=== PATIENT | male | born 1955 | race Caucasian/White ===

== ENCOUNTER 2017-02-06 12:24 | Inpatient (IN) | payer OTHER ==
[~2017-02-06 12:24] MED LIST: LACTATED RINGER'S 1000 ML INJ 1,000 ML IV ONE; NEOSTIGMINE 3 MG/3 ML SYR IV ONE; ONDANSETRON HCL 4 MG/2 ML VIAL IV PUSH ONE; PHENYLEPH/NS 1000 MCG/10 ML SYR IV ONE; PROPOFOL 200 MG/20 ML AMP IV ONE; ePHEDrine/NS 25 MG/5 ML SYR IV ONE; fentaNYL CITRATE 250 MCG/5 ML AMP IV ONE
[2017-02-06 12:26] VITALS: O2SAT 97
[2017-02-06] MEDS ORDERED: ceFAZolin 2 GM PREMIX 50 ML ONE (12:27)
[2017-02-06] MEDS ORDERED: DIPHTH/TETANUS/ACEL PERTUSSIS (BOOSTER) 0.5 ML VIAL/PFS IM ONE (12:27)
[2017-02-06] MEDS ORDERED: PROPOFOL 500 MG/50 ML INJ 50 ML ONE (12:29)
[2017-02-06] MEDS: SODIUM CHLOR 0.9% 1000 ML INJ 1,000 ML IV SCH ×2 (12:44→22:44)
[2017-02-06] MEDS ORDERED: MAGNESIUM HYDROXIDE SUSP 30 ML CUP PO PRN (12:45)
[2017-02-06] MEDS: BACITRACIN TOP OINT 15 GM TUBE TOP SCH ×2 (12:45→21:00)
[2017-02-06] MEDS ORDERED: ENALAPRILAT 1.25 MG/ML VIAL IV PRN (12:45)
[2017-02-06] MEDS ORDERED: MORPHINE SULFATE 30 MG/30 ML PCA IV SCH (12:45)
[2017-02-06] MEDS ORDERED: NALOXONE HCL 0.4 MG/ML AMP IV PRN (12:45)
[2017-02-06] MEDS ORDERED: SODIUM CHLORIDE 0.9% FLUSH 10 ML FLUSH IV FLUSH PRN (12:45)
[2017-02-06] MEDS ORDERED: ACETAMINOPHEN 325 MG TAB PO PRN (12:45)
[2017-02-06] MEDS ORDERED: MISCELLANEOUS NURSING INFORMATION XX SCH (12:45)
[2017-02-06] MEDS: PANTOPRAZOLE SODIUM 40 MG VIAL IVP SCH (12:45)
[2017-02-06] MEDS ORDERED: ACETAMINOPHEN/HYDROcodone 325 MG/5 MG TAB PO PRN ×2 (12:45)
[2017-02-06] MEDS ORDERED: CHLORHEXIDINE GLUCONATE 2 % 1 PACK (2 CLOTHS) TOP PRN (12:45)
[2017-02-06 12:54] LABS: AUTOMATED NEUTROPHIL # 4.2 TH/MM3 (1.8-7.7); BASOPHIL # 0.1 TH/MM3 (0-0.2); BASOPHIL % 0.8 % (0.0-2.0); EOSINOPHIL # 0.3 TH/MM3 (0-0.4); EOSINOPHIL % 3.7 % (0.0-4.0); HEMO FLAGS DIFF FINAL; LYMPHOCYTE # 1.9 TH/MM3 (1.0-4.8); MEAN CELL VOLUME 98.1 FL (80.0-100.0); MEAN CORPUSCULAR HEMOGLOBIN 34.2 PG (27.0-34.0); MEAN CORPUSCULAR HGB CONC 34.8 % (32.0-36.0); MONO % 7.9 % (0.0-8.0); NEUT % 60.6 % (16.0-70.0); PLATELET COUNT 193 TH/MM3 (150-450); RED BLOOD COUNT 4.78 MIL/MM3 (4.50-5.90); RED CELL DISTRIBUTION WIDTH 13.7 % (11.6-17.2)
[2017-02-06] MEDS ORDERED: IOHEXOL 350 MG/ML 10 ML VIAL (for RAD DIAG) IV ONE (12:58)
[2017-02-06 12:59] LABS: I-STAT POTASSIUM 3.8 MMOL/L (3.5-4.9)
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
[2017-02-06 13:04] LABS: APTT (PATIENT) 25.3 SEC (24.3-30.1); PROTHROMBIN TIME - PATIENT 11.1 SEC (9.8-11.6)
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
[2017-02-06] MEDS ORDERED: PCA - TOTAL MG MORPHINE DELIVERED PER SHIFT SCH (14:00)
[2017-02-06 14:05] VITALS: BP 147/98; PULSE 75; RESP 18; TEMP 98.3; O2SAT 98
[2017-02-06 14:30] VITALS: BP 142/86; PULSE 82; RESP 18; TEMP 96.9; O2SAT 96
[2017-02-06] MEDS ORDERED: MORPHINE SULFATE 4 MG/ML INJ IV ONE (15:30)
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
[2017-02-06] MEDS ORDERED: AMBI10TA PO (17:29)
[2017-02-06] MEDS ORDERED: IPRAAER INH (17:29)
[2017-02-06] MEDS ORDERED: CYCL1TAB29 PO (17:29)
[2017-02-06] MEDS ORDERED: DULE200A INH (17:29)
[2017-02-06] MEDS ORDERED: TYLETAB34 PO (17:29)
[2017-02-06] MEDS ORDERED: BUPIVACAINE/EPINEPHRINE 0.5% PF 10 ML VIAL ONE (17:55)
[2017-02-06] MEDS ORDERED: GENTAMICIN SULFATE 80 MG/2 ML VIAL ONE (17:55)
[2017-02-06] MEDS ORDERED: fentaNYL CITRATE 250 MCG/5 ML AMP ONE (18:46)
[2017-02-06] MEDS: DOCUSATE SODIUM 100 MG CAP PO SCH (21:00)
--- NOTE | 2017-02-06 21:23 | PD.OP ---
Operative Report Preoperative Diagnosis: (1) Distal radius fracture, right (2) Ankle fracture, right (3) Acute carpal tunnel syndrome of right wrist Postoperative Diagnosis: (1) Distal radius fracture, right (2) Ankle fracture, right (3) Acute carpal tunnel syndrome of right wrist Procedure: 1) ORIF Right intraarticular distal radius fracture 2) ORIF Right ankle bimalleolar fracture 3) Right open carpal tunnel release Anesthesia: General Surgeon: Darryl Hutchinson MD Echocardiograph Technician(s): staff Operation and Findings: see dictation Darryl Hutchinson MD Feb 06, 2017 21:23
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
[2017-02-06] MEDS ORDERED: Post-op Orders (for Pharmacy) MISC XX ONE (21:45)
[2017-02-06] MEDS ORDERED: LACTULOSE SYRUP 20 GM/30 ML CUP PO PRN (21:45)
[2017-02-06] MEDS ORDERED: diphenhydrAMINE HCL 25 MG CAP PO PRN (21:45)
[2017-02-06] MEDS ORDERED: *RESP: ALBUTEROL 2.5 MG/3 ML NEB (PRN) PERIprocedural Use ONLY NEB ONE (21:47)
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
[2017-02-06] MEDS ORDERED: DO NOT ADM ANY ANTICOAGULANT DRUGS PRN (22:00)
[2017-02-06] MEDS: PCA - TOTAL MG DILAUDID DELIVERED PER SHIFT OTHER SCH (22:00)
[2017-02-06] MEDS: HYDROmorphone HCL PCA 6 MG/30 ML IV SCH (22:12)
--- NOTE | 2017-02-06 22:21 | RADRPT ---
EXAM DATE/TIME: 02/06/2017 19:25 [facility] COMPARISON: ANKLE RIGHT COMPLETE ([id number]), February 06, 2017, 13:49. INDICATIONS : ORIF of the right ankle. MEDICAL HISTORY : Non-responsive SURGICAL HISTORY : Non-responsive ENCOUNTER: Subsequent ACUITY: 1 day PAIN SCORE: Non-responsive. LOCATION: Right ankle FINDINGS: A total of 7 images recorded digitally the operating room using C-arm during placement of 2 screws in the medial malleolus and a long screw in the shaft of the fibula. CONCLUSION: Intraoperative images. Almas Bales MD on February 06, 2017 at 22:18 Board Certified Radiologist. This report was verified electronically.
[2017-02-06 22:35] VITALS: BP 146/89; PULSE 78; RESP 16; TEMP 97.6; O2SAT 94
--- NOTE | 2017-02-06 22:35 | RADRPT ---
EXAM DATE/TIME: 02/06/2017 20:43 [facility] COMPARISON: No previous studies available for comparison. INDICATIONS : ORIF of the right wrist. MEDICAL HISTORY : Non-responsive SURGICAL HISTORY : Non-responsive ENCOUNTER: Subsequent ACUITY: 1 day PAIN SCORE: Non-responsive. LOCATION: Right upper extremity FINDINGS: 6 images of the wrists are recorded digitally in the operating room during placement of a volar plate in the radius. CONCLUSION: Intraoperative images Almas Bales MD on February 06, 2017 at 22:32 Board Certified Radiologist. This report was verified electronically.
--- NOTE | 2017-02-06 23:10 | MP ---
cc: JOSE HUTCHINSON M.D. DATE OF SURGERY 02/06/17 PREOPERATIVE DIAGNOSIS 1. Highly comminuted right distal radius intra-articular fracture. 2. Right ankle bimalleolar fracture. 3. Right acute carpal tunnel syndrome. POSTOPERATIVE DIAGNOSIS 1. Highly comminuted right distal radius intra-articular fracture. 2. Right ankle bimalleolar fracture. 3. Right acute carpal tunnel syndrome. PROCEDURE 1. Right ankle open reduction, internal fixation bimalleolar fracture using Synthes 4.0 cannulated screws medially and a long 3.5 mm intramedullary screw laterally. 2. Right distal radius intra-articular fracture, open reduction, internal fixation with Synthes specialty locking plate. 3. Right open carpal tunnel release. ANESTHESIA The anesthetic is general. SURGEON Jose Hutchinson MD OFFICE TECHNOLOGY INSTRUCTOR SURGEON Staff. ESTIMATED BLOOD LOSS Of the right ankle is 20 cc. The estimated blood loss of the right wrist is 40 cc. TOURNIQUET TIME The tourniquet time for the right upper extremity approximately 1 hour. Left lower extremity none. INDICATION Sourav Lyn is a 61-year-old male who has a highly comminuted right distal radius intra-articular fracture with numbness throughout his hands as well as bimalleolar ankle fracture. He is indicated for surgical repair in both locations. The risks, benefits thoroughly discussed and a detailed informed consent was obtained. PROCEDURE IN DETAIL The patient brought to the operating room. He was placed under general anesthetic. The right lower extremity and right upper extremity prepped and draped in the usual sterile fashion. IV antibiotics were given. Time-out was completed. We did the right ankle first. We did not use a tourniquet. We made a medial based incision and went down to the layers, obtained excellent hemostasis. Identified the fracture site, irrigate it out. There was some comminuted bone in this location, anatomic alignment of the bone, clamped with two clamps, confirmed excellent alignment with fluoroscopic views and then use K-wire fixation and then cannulated screws of the K-wire 34 mm long threaded Synthes 4.0 without washers, excellent fixation. Then we went to the lateral side. There was hematoma formation and there was an eschar overlying the distal fibula. We decided to go with the intramedullary technique. A small incision 1 cm inferiorly and released the hematoma and then went through the tip of the ankle with the fibula and acceptable alignment and then a long drill all the way up on the inside of the medullary canal and then placed our 150 mm 3.5 screw with excellent realignment of bone, good, x-rays AP and lateral view showed the final result. We then proceed to irrigate out and close with absorbable sutures subcu and then nylon on the skin. Attention was ___ on the right upper extremity. We proceeded with volar approach of Ronan. We took down the quadratus pronator and proceeded to realign the intra-articular fracture fragments in both AP and lateral plane. Subperiosteal dissection of the bone, satisfied with the alignment and then we chose our fracture plate and then the balance. The position of the plate and then used K-wires through the plate. Multiple traction techniques and K-wires to fixate and then proceeded with a locking screws in all locations, original one cortical screw. Tourniquet was about 1 hour. The wrist was very tight and decision was made to proceed with a carpal tunnel release through an incision at the base of the palm and then proceeded to irrigate out with copious amounts of irrigation and then proceeded to close with absorbable sutures repairing the quadratus femoris and then the subcu and then nylon on the skin. Xeroform applied. Sterile dressing applied. Sugar-tong splint applied in both locations. The patient was awoken, returned to recovery room in stable condition. MD NITHIN Ortega/AMAURI /9:30 PM /10:53 PM
[2017-02-07] MEDS: ceFAZolin 2 GM PREMIX 50 ML IV SCH ×3 (03:30→16:24)
[2017-02-07 04:00] VITALS: BP 137/86; PULSE 84; RESP 16; TEMP 96.5; O2SAT 97
[2017-02-07] MEDS ORDERED: CHLORHEXIDINE GLUCONATE 2 % 1 PACK (2 CLOTHS) TOP SCH (04:00)
[2017-02-07] MEDS: PCA - TOTAL MG DILAUDID DELIVERED PER SHIFT OTHER SCH ×3 (05:20→21:50)
[2017-02-07] MEDS ORDERED: ZOLPIDEM TARTRATE 10 MG TAB PO PRN (06:45)
--- NOTE | 2017-02-07 06:50 | PD.ORT.PN ---
Subjective Subjective Remarks Patient comfortable Objective Vitals Vital Signs Date Time Temp Pulse Resp B/P Pulse Ox O2 Delivery O2 Flow Rate FiO2 02/07/17 05:20 16 02/07/17 04:00 96.5 84 16 137/86 97 02/06/17 22:35 97.6 78 16 146/89 94 02/06/17 22:15 79 17 138/86 99 Nasal Cannula 4 02/06/17 22:12 20 02/06/17 22:00 80 19 148/89 96 Nasal Cannula 4 02/06/17 21:45 80 12 149/95 96 Nasal Cannula 4 02/06/17 21:41 98.3 82 11 147/85 99 Nasal Cannula 4 02/06/17 15:35 16 02/06/17 14:30 96.9 82 18 142/86 96 02/06/17 14:05 98.3 75 18 147/98 98 Room Air 02/06/17 12:26 97 Nasal Cannula 4.00 02/06/17 12:26 97 4.00 I/O 02/06/17 02/06/17 02/06/17 02/07/17 02/07/17 02/07/17 07:00 15:00 23:00 07:00 15:00 23:00 Intake Total 1600 ml 1064 ml Output Total 400 ml Balance 1600 ml 664 ml Intake Oral 360 ml IV Total 704 ml Other 1600 ml Output Urine Total 400 ml Result Diagram: 02/06/17 1229 Other Results Laboratory Tests Test 02/06/17 12:29 Prothrombin Time 11.1 SEC (9.8-11.6) Prothromb Time International 1.0 RATIO Ratio Imaging Last [address] 02/06/17 1231 Signed Impressions: Service Date/Time: Monday, February 06, 2017 12:47 - CONCLUSION: 1. No acute intracranial abnormality is identified. 2. Air-fluid levels are present within the maxillary antra bilaterally, likely with blood products. Ortiz Bliss MD Chest CT 02/06/17 1231 Signed Impressions: Service Date/Time: Monday, February 06, 2017 12:56 - CONCLUSION: 1. Negative for acute traumatic injury. Dependent atelectasis in the lungs. Paul Mancia MD Cervical Spine CT 02/06/17 1231 Signed Impressions: Service Date/Time: Monday, February 06, 2017 12:47 - CONCLUSION: 1. No cervical spine fracture or acute cervical spine injury is identified. 2. Degenerative disc disease at C5-C6 and C6-C7 with severe right neural foraminal stenosis at C3-C4. Ortiz Bliss MD Abdomen/Pelvis CT 02/06/17 1231 Signed Impressions: Service Date/Time: Monday, February 06, 2017 12:56 - CONCLUSION: 1. Negative for acute traumatic injury. Gallstones in gallbladder. Mild fatty liver. Small hiatal hernia. Paul Mancia MD Objective Remarks Right upper extremity splint in place fingers neuro intact good capillary refill Right lower extremity splint in place good capillary refill NVI Assessment & Plan Problem List: (1) Ankle fracture, right (2) Distal radius fracture, right (3) Acute carpal tunnel syndrome of right wrist Assessment and Plan POD #1 ORIF Right Wrist and Ankle and carpal tunnel release Pain control Physical therapy Platform walker NWB right lower extremity Follow up in office in 2 weeks Darryl Hutchinson MD Feb 07, 2017 06:50
[2017-02-07] MEDS: SODIUM CHLOR 0.9% 1000 ML INJ 1,000 ML IV SCH ×2 (07:40→11:37)
[2017-02-07] MEDS: ONDANSETRON HCL 4 MG/2 ML VIAL IV PRN ×2 (07:40→16:24)
[2017-02-07] MEDS: PANTOPRAZOLE SODIUM 40 MG VIAL IVP SCH (07:43)
[2017-02-07] MEDS: DOCUSATE SODIUM 100 MG CAP PO SCH (07:43)
[2017-02-07] MEDS: BACITRACIN TOP OINT 15 GM TUBE TOP SCH ×2 (07:46→19:58)
[2017-02-07 08:00] VITALS: BP 134/73; PULSE 86; RESP 16; TEMP 96.3; O2SAT 96
[2017-02-07 08:04] LABS: AUTOMATED NEUTROPHIL # 8.1 TH/MM3 (1.8-7.7); BASOPHIL % 0.1 % (0.0-2.0); HEMATOCRIT 43.8 % (39.0-51.0); HEMO FLAGS DIFF FINAL; LYMPHOCYTE # 0.8 TH/MM3 (1.0-4.8); MEAN CELL VOLUME 98.2 FL (80.0-100.0); MEAN CORPUSCULAR HEMOGLOBIN 34.5 PG (27.0-34.0); MEAN CORPUSCULAR HGB CONC 35.1 % (32.0-36.0); MONO % 7.4 % (0.0-8.0); NEUT % 84.5 % (16.0-70.0); PLATELET COUNT 184 TH/MM3 (150-450); RED BLOOD COUNT 4.46 MIL/MM3 (4.50-5.90); WHITE BLOOD COUNT 9.6 TH/MM3 (4.0-11.0)
[2017-02-07] MEDS ORDERED: platform walker (08:14)
[2017-02-07] MEDS ORDERED: BISACODYL 10 MG SUPP RECTAL PRN (08:15)
[2017-02-07 08:18] LABS: BICARBONATE 26.4 MEQ/L (21.0-32.0); POTASSIUM 4.5 MEQ/L (3.5-5.1)
[2017-02-07 08:45] VITALS: O2SAT 94
[2017-02-07] MEDS: DOCUSATE SODIUM 50 MG/SENNA 8.6 MG TAB PO SCH ×2 (09:00→19:57)
[2017-02-07] MEDS ORDERED: MOMETASONE INH SCH (09:00)
[2017-02-07] MEDS ORDERED: COMBIVENT RESPIMAT INH SCH (09:00)
[2017-02-07] MEDS ORDERED: FORMOTEROL INH SCH (09:00)
[2017-02-07] MEDS: LACTULOSE SYRUP 20 GM/30 ML CUP PO SCH (09:00)
[2017-02-07] MEDS ORDERED: [UNRECOGNIZED DRUG - OTHER] INH SCH (09:00)
[2017-02-07] MEDS: HYDROmorphone HCL PCA 6 MG/30 ML IV SCH (09:23)
[2017-02-07 11:38] VITALS: BP 117/76; PULSE 76; RESP 16; TEMP 95.4; O2SAT 93
--- NOTE | 2017-02-07 12:29 | HHI.PR ---
Subjective Subjective Notes OOB to chair Pain controlled on FLOOR LAYER TILE Objective Vitals/I&O Vital Signs Date Time Temp Pulse Resp B/P Pulse Ox O2 Delivery O2 Flow Rate FiO2 02/07/17 11:38 95.4 76 16 117/76 93 02/07/17 08:45 21 02/06/17 22:15 Nasal Cannula 4 Labs Laboratory Tests Test 02/06/17 02/07/17 12:29 07:00 White Blood Count 7.0 9.6 Red Blood Count 4.78 4.46 Hemoglobin 16.3 15.4 Bedside Hemoglobin 15.6 Hematocrit 47.0 43.8 Bedside Hematocrit 46.0 Mean Corpuscular Volume 98.1 98.2 Mean Corpuscular Hemoglobin 34.2 34.5 Mean Corpuscular Hemoglobin 34.8 35.1 Concent Red Cell Distribution Width 13.7 14.0 Platelet Count 193 184 Mean Platelet Volume 8.5 9.1 Neutrophils (%) (Auto) 60.6 84.5 Lymphocytes (%) (Auto) 27.0 8.0 Monocytes (%) (Auto) 7.9 7.4 Eosinophils (%) (Auto) 3.7 0.0 Basophils (%) (Auto) 0.8 0.1 Neutrophils # (Auto) 4.2 8.1 Lymphocytes # (Auto) 1.9 0.8 Monocytes # (Auto) 0.5 0.7 Eosinophils # (Auto) 0.3 0.0 Basophils # (Auto) 0.1 0.0 CBC Comment DIFF FINAL DIFF FINAL Differential Comment Prothrombin Time 11.1 Prothromb Time International 1.0 Ratio Activated Partial 25.3 Thromboplast Time Bedside Sodium 141 Bedside Potassium 3.8 Bedside Chloride 107 Bedside Blood Urea Nitrogen 16 Bedside Creatinine 1.2 Bedside Glucose 148 Blood Type O POSITIVE Antibody Screen NEGATIVE Sodium Level 138 Potassium Level 4.5 Chloride Level 103 Carbon Dioxide Level 26.4 Anion Gap 9 Blood Urea Nitrogen 15 Creatinine 1.00 Estimat Glomerular Filtration 76 Rate Random Glucose 126 Calcium Level 9.4 Radiology Last Impressions Head CT 02/06/17 1231 Signed Impressions: Service Date/Time: Monday, February 06, 2017 12:47 - CONCLUSION: 1. No acute intracranial abnormality is identified. 2. Air-fluid levels are present within the maxillary antra bilaterally, likely with blood products. Ortiz Bliss MD Chest CT 02/06/17 1231 Signed Impressions: Service Date/Time: Monday, February 06, 2017 12:56 - CONCLUSION: 1. Negative for acute traumatic injury. Dependent atelectasis in the lungs. Paul Mancia MD Cervical Spine CT 02/06/17 1231 Signed Impressions: Service Date/Time: Monday, February 06, 2017 12:47 - CONCLUSION: 1. No cervical spine fracture or acute cervical spine injury is identified. 2. Degenerative disc disease at C5-C6 and C6-C7 with severe right neural foraminal stenosis at C3-C4. Ortiz Bliss MD Abdomen/Pelvis CT 02/06/17 1231 Signed Impressions: Service Date/Time: Monday, February 06, 2017 12:56 - CONCLUSION: 1. Negative for acute traumatic injury. Gallstones in gallbladder. Mild fatty liver. Small hiatal hernia. Paul Mancia MD Wrist X-Ray 02/06/17 0000 Signed Impressions: Service Date/Time: Monday, February 06, 2017 20:43 - CONCLUSION: Intraoperative images Almas Bales MD Upper Extremity CT 02/06/17 0000 Signed Impressions: Service Date/Time: Monday, February 06, 2017 12:56 - CONCLUSION: 1. Comminuted mildly displaced intra-articular fracture of the distal radius. Paul Mancia MD Tibia/Fibula X-Ray 02/06/17 0000 Signed Impressions: Service Date/Time: Monday, February 06, 2017 12:17 - CONCLUSION: Possible fracture of the medial malleolus. When patient condition permits, suggest ankle x-ray series. Ortiz Bliss MD Radius/Ulna X-Ray 02/06/17 0000 Signed Impressions: Service Date/Time: Monday, February 06, 2017 12:17 - CONCLUSION: Improved anatomic alignment following closed reduction and casting of the distal radial fracture. However, there is some continued posterior displacement of the fracture fragments. Ortiz Bliss MD Pelvis X-Ray 02/06/17 0000 Signed Impressions: Service Date/Time: Monday, February 06, 2017 12:17 - CONCLUSION: No acute finding is identified. Ortiz Bliss MD Chest X-Ray 02/06/17 0000 Signed Impressions: Service Date/Time: Monday, February 06, 2017 12:17 - CONCLUSION: No acute finding is identified. Ortiz Bliss MD Ankle X-Ray 02/06/17 0000 Signed Impressions: Service Date/Time: Monday, February 06, 2017 19:25 - CONCLUSION: Intraoperative images. Almas Bales MD Narrative Exam GENERAL: 61-year-old well-nourished, well developed male OOB in chair. SKIN: Warm and dry. HEAD: Atraumatic. Normocephalic. ENT: No nasal bleeding or discharge. Mucous membranes pink and moist. NECK: Trachea midline. No JVD. CARDIOVASCULAR: Regular rate and rhythm. RESPIRATORY: No accessory muscle use. Lungs clear to auscultation. Breath sounds equal bilaterally. GASTROINTESTINAL: Abdomen soft, non-tender, nondistended. + BS. MUSCULOSKELETAL: Extremities without cyanosis, or edema. RUE soft splint in place with sling. RLE soft splint in place. MAEW. Good cap refills. NEUROLOGICAL: Awake and alert. Normal speech. A/P Assessment and Plan INJURIES: RIGHT radius fx RIGHT ankle bimalleolar fx Acute carpal tunnel syndrome 02/06: RIGHT wrist fx reduced in ED 02/06: ORIF RIGHT wrist fx, carpal tunnel release, ORIF RIGHT ankle fx PMHx: Sleep apnea, COPD Diet: Regular Pulm: IS Pain: Dillaudid FLOOR LAYER TILE, Flexeril, [place] Activity: OOB. PT and OT (NWB RLE, NWB RUE) GI: IV Protonix Bowel: Pericolace, Lactulose. LBM 0 DVT: SCDs, Lovenox 30 BID RIGHT radius fx, RIGHT ankle bimalleolar fx, Acute carpal tunnel syndrome Orthopedics consulted 02/06: RIGHT wrist fx reduced in ED 02/06: ORIF RIGHT wrist fx, carpal tunnel release, ORIF RIGHT ankle fx NWB RLE, NWB RUE OOB-PT and OT Pain control Ice PRN Plan of care discussed with patient at bedside. Case management consult to assist discharge planning. Platform walker ordered. Buddy Botello Feb 07, 2017 12:29
[2017-02-07 16:27] VITALS: BP 150/79; PULSE 84; RESP 17; TEMP 96.7; O2SAT 94
[2017-02-07] MEDS: ENOXAPARIN SODIUM 30 MG/0.3 ML SYRINGE SQ SCH (19:58)
[2017-02-07] MEDS: CYCLOBENZAPRINE HCL 10 MG TAB PO PRN (20:02)
[2017-02-07 20:45] VITALS: BP 160/77; PULSE 84; RESP 17; TEMP 96.6; O2SAT 94
[2017-02-08] VITALS: BP 135/83; PULSE 100; RESP 18; TEMP 96.6; O2SAT 93
[2017-02-08 04:25] VITALS: BP 138/84; PULSE 97; RESP 17; TEMP 98.6; O2SAT 93
[2017-02-08] MEDS: SODIUM CHLOR 0.9% 1000 ML INJ 1,000 ML IV SCH (05:21)
[2017-02-08] MEDS: PCA - TOTAL MG DILAUDID DELIVERED PER SHIFT OTHER SCH (05:54)
[2017-02-08] MEDS ORDERED: HYDR-3516 PO (07:07)
[2017-02-08] MEDS ORDERED: WHEEMIS3 (07:07)
--- NOTE | 2017-02-08 07:10 | PD.ORT.PN ---
Subjective Subjective Remarks Patient comfortable Objective Vitals Vital Signs Date Time Temp Pulse Resp B/P Pulse Ox O2 Delivery O2 Flow Rate FiO2 02/08/17 00:00 96.6 100 18 135/83 93 02/07/17 20:45 96.6 84 17 160/77 94 02/07/17 17:59 21 02/07/17 16:27 96.7 84 17 150/79 94 02/07/17 11:38 95.4 76 16 117/76 93 02/07/17 09:23 16 02/07/17 08:45 94 21 02/07/17 08:00 96.3 86 16 134/73 96 I/O 02/07/17 02/07/17 02/07/17 02/08/17 02/08/17 02/08/17 06:59 14:59 22:59 06:59 14:59 22:59 Intake Total 1064 ml 893 ml 279 ml Output Total 400 ml 1000 ml Balance 664 ml -107 ml 279 ml Intake Oral 360 ml 580 ml IV Total 704 ml 313 ml 279 ml Output Urine Total 400 ml 1000 ml # Bowel Movements 0 Result Diagram: 02/07/17 0700 02/07/17 0700 Imaging Last [address] 02/06/17 1231 Signed Impressions: Service Date/Time: Monday, February 06, 2017 12:47 - CONCLUSION: 1. No acute intracranial abnormality is identified. 2. Air-fluid levels are present within the maxillary antra bilaterally, likely with blood products. Ortiz Bliss MD Chest CT 02/06/17 1231 Signed Impressions: Service Date/Time: Monday, February 06, 2017 12:56 - CONCLUSION: 1. Negative for acute traumatic injury. Dependent atelectasis in the lungs. Paul Mancia MD Cervical Spine CT 02/06/17 1231 Signed Impressions: Service Date/Time: Monday, February 06, 2017 12:47 - CONCLUSION: 1. No cervical spine fracture or acute cervical spine injury is identified. 2. Degenerative disc disease at C5-C6 and C6-C7 with severe right neural foraminal stenosis at C3-C4. Ortiz Bliss MD Abdomen/Pelvis CT 02/06/17 1231 Signed Impressions: Service Date/Time: Monday, February 06, 2017 12:56 - CONCLUSION: 1. Negative for acute traumatic injury. Gallstones in gallbladder. Mild fatty liver. Small hiatal hernia. Paul Mancia MD Objective Remarks Right upper extremity splint in place fingers neuro intact good capillary refill Right lower extremity splint in place good capillary refill NVI Assessment & Plan Problem List: (1) Ankle fracture, right (2) Distal radius fracture, right (3) Acute carpal tunnel syndrome of right wrist Assessment and Plan POD #2 ORIF Right Wrist and Ankle and carpal tunnel release Pain control Physical therapy Platform walker for home - medically necessary Wheelchair with elevated leg rest - medically necessary NWB right lower extremity Follow up in office in 2 weeks Darryl Hutchinson MD Feb 08, 2017 07:10
[2017-02-08 07:47] VITALS: BP 144/83; PULSE 99; RESP 19; TEMP 98; O2SAT 94
[2017-02-08] MEDS: BACITRACIN TOP OINT 15 GM TUBE TOP SCH (09:00)
[2017-02-08] MEDS: LACTULOSE SYRUP 20 GM/30 ML CUP PO SCH (09:05)
[2017-02-08] MEDS: ENOXAPARIN SODIUM 30 MG/0.3 ML SYRINGE SQ SCH (09:05)
[2017-02-08] MEDS: GABAPENTIN 300 MG CAP PO SCH ×3 (09:06→16:23)
[2017-02-08] MEDS: PANTOPRAZOLE SODIUM 40 MG VIAL IVP SCH (09:06)
[2017-02-08] MEDS: DOCUSATE SODIUM 50 MG/SENNA 8.6 MG TAB PO SCH (09:06)
[2017-02-08] MEDS: HYDROmorphone HCL PCA 6 MG/30 ML IV SCH (09:10)
[2017-02-08] MEDS ORDERED: PERC5TAB12 PO (11:16)
[2017-02-08 11:30] VITALS: BP 154/84; PULSE 91; RESP 19; TEMP 97.2; O2SAT 93
[2017-02-08] MEDS ORDERED: oxyCODONE/ACETAMINOPHEN 5 MG/325 MG TAB PO PRN (11:30)
[2017-02-08] MEDS: CYCLOBENZAPRINE HCL 10 MG TAB PO PRN (12:19)
[2017-02-08 12:31] VITALS: O2SAT 93
[2017-02-08] MEDS ORDERED: ENOX30P SQ (13:05)
[2017-02-08] MEDS ORDERED: SENN1TAB PO (13:05)
[2017-02-08] MEDS ORDERED: NEUR300C PO (13:05)
[2017-02-08] MEDS ORDERED: Lactulose Liq PO (13:05)
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
[2017-02-08 15:31] VITALS: BP 138/87; PULSE 97; RESP 19; TEMP 96.9; O2SAT 95
== END 2017-02-08 18:49 | DRG 493 ==
LOC: NEPI 12:24 → NEDA 13:02 → EDBD 13:02 → N06A 14:25
PROVIDERS: ADMIT Surgery; ATTEND Surgery
PROC: 0QSG04Z Reposition Right Tibia with Internal Fixation Device, Open Approach (ICD-10-PCS; 2017-02-06)
PROC: 01N50ZZ Release Median Nerve, Open Approach (ICD-10-PCS; 2017-02-06)
PROC: 0PSHXZZ Reposition Right Radius, External Approach (ICD-10-PCS; 2017-02-06)
PROC: 0QSJ04Z Reposition Right Fibula with Internal Fixation Device, Open Approach (ICD-10-PCS; principal; 2017-02-06 18:25)
PROC: 0PSH04Z Reposition Right Radius with Internal Fixation Device, Open Approach (ICD-10-PCS; 2017-02-06 18:25)
DX: S82.841A Displaced bimalleolar fracture of right lower leg, initial encounter for closed fracture (principal); S52.571A Other intraarticular fracture of lower end of right radius, initial encounter for closed fracture; G56.01 Carpal tunnel syndrome, right upper limb; V29.49XA Motorcycle driver injured in collision with other motor vehicles in traffic accident, initial encounter; Y92.410 Unspecified street and highway as the place of occurrence of the external cause; G47.30 Sleep apnea, unspecified; J44.9 Chronic obstructive pulmonary disease, unspecified; M47.9 Spondylosis, unspecified; Z87.891 Personal history of nicotine dependence
CPT/HCPCS: 70450; 71010; 71260; 72125; 72170; 73090; 73110; 73200; 73610; 74177; 76000; 80048; 82435; 82565; 82947; 84132; 84295; 84520; 85025; 85610; 85730; 86850; 86900; 86901; 90715; 94150; 94664; C1713; C9113; J0690; J1170; J1580; J1650; J2270; J2370; J2405; J2710; J3010; J7030; J7120; J7613; Q9967

== ENCOUNTER 2017-09-12 18:08 | Emergency (ER) | payer SELFPAY ==
[~2017-09-12 18:08] MED LIST changes: +CYCL10TA PO; +DULE200A INH; +ENOX30P SQ; +IPRAAER INH; -LACTATED RINGER'S 1000 ML INJ 1,000 ML IV ONE; +Lactulose Liq PO; -NEOSTIGMINE 3 MG/3 ML SYR IV ONE; +NEUR300C PO; -ONDANSETRON HCL 4 MG/2 ML VIAL IV PUSH ONE; +PERC5TAB12 PO; -PHENYLEPH/NS 1000 MCG/10 ML SYR IV ONE; -PROPOFOL 200 MG/20 ML AMP IV ONE; +SENN1TAB PO; +WHEEMIS3; -ePHEDrine/NS 25 MG/5 ML SYR IV ONE; -fentaNYL CITRATE 250 MCG/5 ML AMP IV ONE; +platform walker
[2017-09-12 18:22] VITALS: BP 150/85; PULSE 83; RESP 16; TEMP 97.5; O2SAT 95
[2017-09-12 20:33] LABS: AUTOMATED NEUTROPHIL # 4.5 TH/MM3 (1.8-7.7); BASOPHIL # 0.1 TH/MM3 (0-0.2); BASOPHIL % 0.8 % (0.0-2.0); EOSINOPHIL # 0.5 TH/MM3 (0-0.4); EOSINOPHIL % 6.9 % (0.0-4.0); HEMOGLOBIN 17.2 GM/DL (13.0-17.0); LYMPH % 27.3 % (9.0-44.0); LYMPHOCYTE # 2.1 TH/MM3 (1.0-4.8); MEAN CELL VOLUME 96.5 FL (80.0-100.0); MEAN CORPUSCULAR HEMOGLOBIN 33.2 PG (27.0-34.0); MEAN CORPUSCULAR HGB CONC 34.5 % (32.0-36.0); MEAN PLATELET VOLUME 9.1 FL (7.0-11.0); MONO % 6.4 % (0.0-8.0); MONOCYTE # 0.5 TH/MM3 (0-0.9); NEUT % 58.6 % (16.0-70.0); PLATELET COUNT 201 TH/MM3 (150-450); RED BLOOD COUNT 5.18 MIL/MM3 (4.50-5.90); WHITE BLOOD COUNT 7.7 TH/MM3 (4.0-11.0)
[2017-09-12 20:36] LABS: PROTHROMBIN TIME - PATIENT 10.5 SEC (9.8-11.6)
[2017-09-12 20:49] LABS: ALBUMIN 4.2 GM/DL (3.4-5.0); AST (GOT) 40 U/L (15-37); BICARBONATE 28.9 MEQ/L (21.0-32.0); BLOOD UREA NITROGEN 16 MG/DL (7-18); CALCIUM 9.9 MG/DL (8.5-10.1); CHLORIDE 102 MEQ/L (98-107); CREATININE 1.23 MG/DL (0.60-1.30); GLOMERULAR FILTRATION RATE 60 ML/MIN (>89); GLUCOSE,RANDOM 96 MG/DL (74-106); SODIUM (NA) 138 MEQ/L (136-145)
[2017-09-12 20:55] LABS: ALKALINE PHOSPHATASE 130 U/L (45-117); ALT (GPT) 59 U/L (12-78); TOTAL BILIRUBIN ADULT 1.2 MG/DL (0.2-1.0); TOTAL PROTEIN 8.2 GM/DL (6.4-8.2)
[2017-09-12 23:19] VITALS: BP 130/93; PULSE 66; RESP 16; O2SAT 95
[2017-09-12] MEDS ORDERED: ZOLP10TA3 PO (23:19)
[2017-09-12] MEDS ORDERED: GABA300C5 PO (23:19)
[2017-09-12] MEDS ORDERED: TEST200I12 IM (23:19)
--- NOTE | 2017-09-12 23:22 | PD ---
HPI Chief Complaint: GI Complaint Time Seen by Provider: 23:21 Travel History International Travel<30 days: No Contact w/Intl Traveler<30days: No Traveled to known affect area: No History of Present Illness HPI 62-year-old male came to the emergency room with history of rectal bleeding for past 3 days. He says that every time he goes to the bathroom and wipes himself he notices blood on the toilet paper. No history of dizziness or lightheadedness. Vital signs are stable. No history of pain. Patient had a colonoscopy 2 years ago through [place] and everything was negative at that time. He has never had rectal bleeding in the past. He is not on any blood thinners. No history of abdominal pain, nausea vomiting. Patient drinks alcohol occasionally mostly over the weekends as per him. Vital signs were stable. [facility] Past Medical History Narrative Medical List of his past medical, surgical, social and family history reviewed from the nursing note. Arthritis: Yes (neck and back) Cancer: No Cardiovascular Problems: No COPD: Yes Diabetes: No Endocrine: No Genitourinary: No Immune Disorder: No Musculoskeletal: Yes Neurologic: No Reproductive: No Respiratory: Yes (COPD) Sleep Apnea: Yes Tetanus Vaccination: Unknown Influenza Vaccination: No Social History Alcohol Use: Yes (OCC) Tobacco Use: No Substance Use: No Allergies-Medications (Allergen,Severity, Reaction): Coded Allergies: No Known Allergies (Unverified , 02/06/17) Comments No known drug allergies. Reported Meds & Prescriptions Reported Meds & Active Scripts Active Senna Plus 8.6-50 mg (Sennosides-Docusate Sodium) 1 Tab Tab 1 Tab PO BID 30 Days Percocet (Oxycodone-Acetaminophen) 5-325 mg Tab 1 Tab PO Q4H PRN Reported Zolpidem (Zolpidem Tartrate) 10 Mg Tab 10 Mg PO HS PRN Testosterone Cypionate Inj (Testosterone Cypionate) 200 Mg/Ml Inj 200 Mg IM Q14D Gabapentin 300 Mg Cap 300 Mg PO BID Combivent Respimat Inh (Ipratropium-Albuterol Inh) 20-100 Snf/Act Aero 1 Puff INH QID Dulera 120 Act Inh (Mometasone-Formoterol 120 Act Inh) 200-5 Mcg/Act Inh 2 Puff INH BID Flexeril (Cyclobenzaprine HCl) 10 Mg Tab 10 Mg PO TID PRN Narrative Medication List of his home medications reviewed from the nursing note. Review of Systems Except as stated in HPI: all other systems reviewed are Neg Gastrointestinal: Positive: Hematochezia Physical Exam Narrative GENERAL: Awake, alert, no obvious distress SKIN: Focused skin assessment warm/dry. HEAD: Atraumatic. Normocephalic. EYES: Pupils equal and round. No scleral icterus. No injection or drainage. ENT: No nasal bleeding or discharge. Mucous membranes pink and moist. NECK: Trachea midline. No JVD. CARDIOVASCULAR: Regular rate and rhythm. No murmur appreciated. RESPIRATORY: No accessory muscle use. Clear to auscultation. Breath sounds equal bilaterally. GASTROINTESTINAL: Abdomen soft, non-tender, nondistended. Hepatic and splenic margins not palpable. Rectal exam shows some dried blood perianally. No external hemorrhoid, on digital exam rectally did not feel any lumps or bumps. MUSCULOSKELETAL: No obvious deformities. No clubbing. No cyanosis. No edema. NEUROLOGICAL: Awake and alert. No obvious cranial nerve deficits. Motor grossly within normal limits. Normal speech. PSYCHIATRIC: Appropriate mood and affect; insight and judgment normal. Data Data Last Documented VS Vital Signs Date Time Temp Pulse Resp B/P (MAP) Pulse Ox O2 Delivery O2 Flow Rate FiO2 09/12/17 23:19 66 16 130/93 (105) 95 Room Air 09/12/17 18:22 97.5 Orders Orders Complete Blood Count With Diff (09/12/17 18:25) Comprehensive Metabolic Panel (09/12/17 18:25) Prothrombin Time / Inr (Pt) (09/12/17 18:25) Act Partial Throm Time (Ptt) (09/12/17 18:25) Ed Discharge Order (09/12/17 23:36) Labs Laboratory Tests Test 09/12/17 19:00 White Blood Count 7.7 TH/MM3 Red Blood Count 5.18 MIL/MM3 Hemoglobin 17.2 GM/DL Hematocrit 50.0 % Mean Corpuscular Volume 96.5 FL Mean Corpuscular Hemoglobin 33.2 PG Mean Corpuscular Hemoglobin Concent 34.5 % Red Cell Distribution Width 14.0 % Platelet Count 201 TH/MM3 Mean Platelet Volume 9.1 FL Neutrophils (%) (Auto) 58.6 % Lymphocytes (%) (Auto) 27.3 % Monocytes (%) (Auto) 6.4 % Eosinophils (%) (Auto) 6.9 % Basophils (%) (Auto) 0.8 % Neutrophils # (Auto) 4.5 TH/MM3 Lymphocytes # (Auto) 2.1 TH/MM3 Monocytes # (Auto) 0.5 TH/MM3 Eosinophils # (Auto) 0.5 TH/MM3 Basophils # (Auto) 0.1 TH/MM3 CBC Comment DIFF FINAL Differential Comment Prothrombin Time 10.5 SEC Prothromb Time International Ratio 1.0 RATIO Activated Partial Thromboplast Time 27.5 SEC Blood Urea Nitrogen 16 MG/DL Creatinine 1.23 MG/DL Random Glucose 96 MG/DL Total Protein 8.2 GM/DL Albumin 4.2 GM/DL Calcium Level 9.9 MG/DL Alkaline Phosphatase 130 U/L Aspartate Amino Transf (AST/SGOT) 40 U/L Alanine Aminotransferase (ALT/SGPT) 59 U/L Total Bilirubin 1.2 MG/DL Sodium Level 138 MEQ/L Potassium Level 3.8 MEQ/L Chloride Level 102 MEQ/L Carbon Dioxide Level 28.9 MEQ/L Anion Gap 7 MEQ/L Estimat Glomerular Filtration Rate 60 ML/MIN MDM Medical Decision Making Medical Screen Exam Complete: Yes Emergency Medical Condition: Yes Medical Record Reviewed: Yes Differential Diagnosis Hematochezia Narrative Course 11:41 PM in my opinion given the quantity of the blood and blood test results been completely normal especially the hemoglobin and hematocrit and vital signs being normal I feel this could be from an internal hemorrhoid. Patient does have a GI specialist and I have asked him to follow-up with his GI specialist within the next 2 days. I have also given him instructions to return to the emergency room if condition worsens or if the bleeding continues and he is unable to get an appointment soon. He understands and he will be discharged Procedures EKG Prior to Arrival: No HemaPrompt Point of Care Internal Pos. & Neg. Controls: Passed Fecal Specimen Occult Blood: Positive Comment Trace positive Diagnosis Primary Impression: Hematochezia Referrals: Primary Care Physician 2 days Additional Instructions: Please follow-up with your GI specialist in next couple days. Return to the emergency room in case the bleeding continues and he cannot be seen by GI specialist. Abstain from alcohol. Take the medication as per the prescription direction. Med/Other Pt SpecificInfo: Prescription(s) given Scripts Polyethylene Glycol 3350 Powder (Miralax Powder) 17 Gm Powd 17 GM PO DAILY for Constipation, #1 CAN 0 Refills Mix and dissolve one measuring cap-ful (17 grams) in water or juice. Prov: Ashutosh Warner MD 09/12/17 Disposition: 01 DISCHARGE HOME Condition: Stable Ashutosh Warner MD Sep 12, 2017 23:22
[2017-09-12] MEDS ORDERED: MIRA3350 PO (23:37)
== END 2017-09-12 23:45 | disposition home or self-care (01) ==
LOC: NEPD 18:08
DX: K92.1 Melena (principal); J44.9 Chronic obstructive pulmonary disease, unspecified; M19.90 Unspecified osteoarthritis, unspecified site; Z79.899 Other long term (current) drug therapy
CPT/HCPCS: 80053; 85025; 85610; 85730; 99283